=== PATIENT | male | born 2005 | race Hispanic/Latino ===

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

== ENCOUNTER 2023-04-06 07:49 | Emergency (ER) | payer BC ==
[2023-04-06] MEDS ORDERED: Ibuprofen 200 MG TAB ONE (08:28)
[2023-04-06] MEDS ORDERED: Ondansetron ODT 4 MG TAB ONE (08:29)
[2023-04-06 09:38] LABS: SARS-CoV-2 NAA Rapid Test Not Detected (NotDetected)
== END 2023-04-06 09:51 | disposition home or self-care (01) ==
LOC: CSHERS 07:49
DX: B34.9 Viral infection, unspecified (principal)
CPT/HCPCS: 99284; Q0162